=== PATIENT | female | born 1980 | race Caucasian/White ===

== ENCOUNTER → 2018-12-29 | Outpatient (CLI) | payer OTHER ==
--- NOTE | 2018-12-29 16:09 | PCVCIMAG ---
APPROVED REPORT Study performed: 12/29/2018 14:56:22 EXAM: Comprehensive 2D, Doppler, and color-flow Echocardiogram Patient Location: Echo lab Room #: 2Status: routine BSA: 1.59 HR: 65 bpmBP: 96/68 mmHg Rhythm: NSR Other Information Study Quality: Good Indications Abnormal ECG L arm pain,numbness 2D Dimensions IVSd: 6.96 (7-11mm)LVOT Diam: 19.73 (18-24mm) LVDd: 43.26 mm PWd: 7.00 (7-11mm) LVDs: 31.34 (25-40mm) Left Atrium: 27.55 (27-40mm) Aortic Root: 25.50 mm LV Single Plane 4CH: 51.39 % LV Single Plane 2CH: 59.96 % Biplane EF: 56.4 % Volumes Left Atrial Volume (Systole) Single Plane 4CH: 33.06 mLSingle Plane 2CH: 29.70 mL Aortic Valve AoV Peak Herb.: 1.20 m/s LVOT Max P.98 mmHg LVOT Max V: 0.86 m/s Mitral Valve E/A Ratio: 1.7 MV Decel. Time: 189.47 ms MV E Max Herb.: 0.69 m/s MV A Herb.: 0.40 m/s TDI E/Lateral E': 4.60E/Medial E': 5.75 Medial E' Herb.: 0.12 m/s Lateral E' Herb.: 0.15 m/s Pulmonary Valve PV Peak Herb.: 0.77 m/sPV Peak Gr.: 2.35 mmHg Pulmonary Vein P Vein S: 0.54 m/sP Vein A: 0.30 m/s P Vein D: 0.40 m/sP Vein A Dur.: 79.6 msec P Vein S/D Ratio: 1.35 Tricuspid Valve TR Peak Hebr.: 1.77 m/s TR Peak Gr.: 12.49 mmHg TV Vmax: 0.77 m/sPA Pressure: 19.00 mmHg Left Ventricle The left ventricle is normal size. There is normal LV segmental wall motion. There is normal left ventricular wall thickness. Left ventricular systolic function is normal. The left ventricular ejection fraction is within the normal range. LVEF is 55-60%. The left ventricular diastolic function is normal. Right Ventricle The right ventricle is normal size. The right ventricular systolic function is normal. Atria The left atrium size is normal. The right atrium size is normal. Aortic Valve Aortic valve is trileaflet. No aortic regurgitation is present. There is no aortic valvular stenosis. Mitral Valve The mitral valve is normal in structure and function. The posterior leaflet is slightly redundant with borderline prolapse but no regurgitation There is no mitral valve regurgitation noted. No evidence of mitral valve stenosis. Tricuspid Valve The tricuspid valve is normal in structure. Trace tricuspid regurgitation with a PA pressure of 19 mmHg. No apparent pulmonary hypertension. Pulmonic Valve The pulmonary valve is normal in structure. There is no pulmonic valvular regurgitation. Great Vessels The aortic root is normal in size. The ascending aorta is normal in size. Aortic arch is normal in caliber. IVC is normal in size and collapses >50% with inspiration. Pericardium There is no pericardial effusion. There is no pleural effusion. <Conclusion> Normal echocardiogram. The left ventricle is normal size. There is normal left ventricular wall thickness. Left ventricular systolic function is normal. The left ventricular diastolic function is normal. The right ventricle is normal size. The left atrium size is normal. The right atrium size is normal. Aortic valve is trileaflet. The mitral valve is normal in structure and function. Trace tricuspid regurgitation with a PA pressure of 19 mmHg.
== END | disposition home or self-care (01) ==
LOC: PCVCIMAG 15:16
PROVIDERS: ATTEND Internal Medicine Cardiovascular Disease
DX: R94.31 Abnormal electrocardiogram [ECG] [EKG] (principal); R20.0 Anesthesia of skin
CPT/HCPCS: 93306